=== PATIENT | male | born 1985 | race African-American/Black ===

== ENCOUNTER 2018-05-19 09:03 | Emergency (ER) | payer SELFPAY ==
[~2018-05-19] VITALS: Ht 185.4 cm; Wt 68.5 kg
--- NOTE | 2018-05-19 09:12 | NUR ---
PT AMBULATORY TO ER BED 09. C/O COUGH AND CONGESTION, CHILLS X 3 DAYS. PLACED O MONITOR. VSS. AFEBRILE ACCOUNT MAINTENANCE REPRESENTATIVE. PT ALSO ENDORSES POSSIBLE STD EXPOSURE. AWAITING MD ELKINS.
--- NOTE | 2018-05-19 09:24 | NUR ---
DR ELIZONDO AT BEDSIDE FOR EVAL.
--- NOTE | 2018-05-19 09:28 | NUR ---
RADIOLOGY AT BEDSIDE FOR CHEST XRAY.
[2018-05-19] MEDS: IV NS 0.9% 1,000 ML BAG IV ONE (09:43)
[2018-05-19 10:00] LABS: CALCIUM, SERUM 8.7 mg/dL (8.5-10.1); CREATININE 1.4 mg/dL (0.6-1.3); POTASSIUM 3.8 mmol/L (3.5-5.1)
[2018-05-19 10:15] LABS: HEMATOCRIT 50 % (39-51)
[2018-05-19 10:16] LABS: HEMOGLOBIN 17.1 g/dL (13.5-17.5); MEAN CORPUSCULAR HEMOGLOBIN 33 PG (26.0-33.0); MEAN CORPUSCULAR HGB CONC 34 g/dl (31.0-36.0); MEAN CORPUSCULAR VOLUME 96 fL (80-96); PLATELET COUNT (AUTO) 200 /CMM (150-450); RDW COEFFICIENT OF VARIATION 11.9 (11.5-15.0); RED BLOOD CELL COUNT(AUTO) 5.24 MIL/uL (4.5-6.0); WHITE BLOOD COUNT (AUTO) 4.4 K/uL (4.3-11.0)
[2018-05-19] MEDS: CEFTRIAXONE 1GM BAG (ER ONLY) 1 GM/50 ML PIGGYBACK IV ONE (10:30)
[2018-05-19] MEDS ORDERED: AZITHROMYCIN 250 MG TABLET ONE (10:35)
[2018-05-19] MEDS: AZITHROMYCIN 250 MG TABLET PO ONE (10:38)
[2018-05-19 11:02] VITALS: BP 122/77
--- NOTE | 2018-05-19 11:02 | NUR ---
Patient discharged to home in stable condition. Written and verbal after care instructions given. Patient verbalizes understanding of instruction.IV removed. Catheter intact and site benign. Pressure and 4x4 applied to site. No bleeding noted.
[2018-05-19 11:28] LABS: BAND % (MANUAL) 4 % (0.0-5.0); EOSINOPHILS % (MANUAL) 1 % (0-4); LYMPHOCYTES % (MANUAL) 40 % (16-48); MONOCYTES % (MANUAL) 24 % (0-11.0); NEUTROPHILS % (MANUAL) 31 (42-76)
== END 2018-05-19 11:04 | disposition home or self-care (01) ==
LOC: ER 09:05
DX: J06.9 Acute upper respiratory infection, unspecified (principal); E86.0 Dehydration; Z90.2 Acquired absence of lung [part of]
CPT/HCPCS: 36415; 71045-TC; 80048-TC; 85025-TC; A4606; J0696; J7030; Z7610